=== PATIENT | male | born 1960 | race Caucasian/White ===

== ENCOUNTER 2018-01-18 10:23 | Emergency (ER) | payer OTHER ==
[~2018-01-18] VITALS: Ht 172.7 cm; Wt 145.1 kg
--- NOTE | 2018-01-18 11:19 | Diagnostic Imaging Report ---
INDICATION: Lower leg pain after injury. COMPARISON: Left ankle radiographs performed concurrently. FINDINGS AND IMPRESSION: 1. Seen only on the lateral radiograph, there is a area of radiodensity adjacent to the posterior aspect of the fibula which likely represents a chronic periosteal reaction. This would be an unusual site for fracture since the patient already has a distal fibular fracture. 2. Otherwise, no acute fracture of the proximal tibia or fibula. 3. Please see ankle radiograph report for details of the distal fibular and posterior malleolus fractures. Dictated by: Dictated on workstation # [id number]
--- NOTE | 2018-01-18 11:23 | Diagnostic Imaging Report ---
Indication: Injury to left ankle. AP, oblique, and lateral views of the left ankle are obtained at 1120 hrs. a.m. There is a comminuted acute fracture of the distal fibula with oblique orientation, there is a avulsion fracture of the posterior-most of the distal tibia as well as of the tip of the medialmost of the distal tibia. There is lateral subluxation of the talus relative to the tibia. There is plantar and posterior calcaneal spurring. Impression: Acute fractures of distal tibia and fibula as described above with lateral subluxation of the talus relative to the tibia. Dictated by: Dictated on workstation # [id number]
[2018-01-18] MEDS: fentaNYL INJECTION 100 MCG/2 ML AMP IVP ONE (11:34)
--- NOTE | 2018-01-18 12:24 | ED Fall/Injury ---
General Chief Complaint: Lower Extremity Stated Complaint: ROLLED ANKLE LT Nursing Triage Note: pt presents to ed with complaints of l ankle pain and swelling after twisting it this am while stepping out of his truck. Source: patient Exam Limitations: no limitations History of Present Illness Date Seen by Provider: Jan 18, 2018 Time Seen by Provider: 10:38 Initial Comments This 58-year-old gentleman presents to the emergency room with left ankle injury. Patient stopped at a filling station to get a drink and slipped on wet concrete in rainy conditions. He rolled his left ankle and fell. He has not been able to tolerate weightbearing or walking since then. He denies any other injury. His blood pressure is notably high upon arrival. Patient is traveling for work today. Allergies and Home Medications Allergies Coded Allergies: No Known Drug Allergies (Unverified , 01/18/18) Home Medications Hydrocodone/Acetaminophen 1 Each Tablet, 1-2 EACH PO Q4H Prescribed by: GISELA GALINDO on 01/18/18 1234 Patient Home Medication List Home Medication List Reviewed: Yes Review of Systems Review of Systems Constitutional: no symptoms reported Eyes: No Symptoms Reported Ears, Nose, Mouth, Throat: no symptoms reported Respiratory: no symptoms reported Cardiovascular: see HPI Gastrointestinal: no symptoms reported Genitourinary: no symptoms reported Musculoskeletal: no symptoms reported Skin: no symptoms reported Psychiatric/Neurological: No Symptoms Reported Past Pedhbws-Yzbbkn-Mfzllu Hx Past Med/Social Hx: Reviewed Nursing Past Med/Soc Hx Patient Social History Alcohol Use: Occasionally Uses Recreational Drug Use: No Smoking Status: Never a Smoker Type Used: Smokeless Tobacco Recent Foreign Travel: No Contact w/Someone Who Travel: No Recent Infectious Disease Expo: No Recent Hopitalizations: No Physical Abuse: No Sexual Abuse: No Mistreated: No Fear: No Past Medical History Surgeries: Yes (hernia repair) Respiratory: No Cardiac: Yes High Cholesterol, Hypertension Neurological: No Genitourinary: No Gastrointestinal: No Musculoskeletal: No Endocrine: No HEENT: No Cancer: No Psychosocial: No Nursing Suicide Risk Score: 0 Blood Disorders: No Physical Exam Vital Signs Vital Signs - First Documented 01/18/18 10:31 Temp 98.2 Pulse 93 Resp 18 B/P (MAP) 228/142 (170) Pulse Ox 96 Capillary Refill : Less Than 3 Seconds Height, Weight, BMI Height: 5'8.00" Weight: 320lbs. oz. 145.458265mq; BMI Method:Stated General Appearance: WD/WN, no apparent distress, obese HEENT: PERRL/EOMI, normal ENT inspection Neck: normal inspection Cardiovascular: regular rate, rhythm, no edema, no murmur Respiratory: lungs clear, normal breath sounds, no respiratory distress, no accessory muscle use Gastrointestinal: non tender, soft Extremities: other (Left hip, thigh, and knee are normal to inspection. Upper left lateral calf region is tender to palpation. There is tenderness and swelling about the left ankle. There is no gross disfigurement. Range of motion in the foot and ankle is decreased by pain. Pedal pulses palpable. Capillary refill is normal. Sensation and movement of the toes intact.) Procedures/Interventions Splinting and Joint Reduction : Pre-Proc Neuro Vasc Exam: normal Post-Proc Neuro Vasc Exam: normal Ordered: Crutches (Prescription) Hand-Made Type: orthoglass Splint Application: Short Leg (3 sided short leg splint was fashioned by this provider) Progress/Results/Core Measures Results/Orders My Orders Orders - GISELA ESPOSITO MD Tibia/Fibula, Left, 2 Views (01/18/18 10:44) Ankle, Left, 3 Views (01/18/18 10:44) Saline Lock/Iv-Start (01/18/18 11:25) Fentanyl Injection (Sublimaze Injection (01/18/18 11:30) Oxycodone/Apap 5/325mg Tablet (Percocet (01/18/18 12:30) Crutches (01/18/18 12:24) Medications Given in ED Vital Signs/I&O 01/18/18 01/18/18 10:31 13:05 Temp 98.2 Pulse 93 64 Resp 18 18 B/P (MAP) 228/142 (170) 176/93 Pulse Ox 96 98 Blood Pressure Mean: 170 Progress Progress Note #1: Time: 12:22 Progress Note X-ray imaging revealed fractures of the distal tibia and fibula. There was a questionable fracture of the proximal fibula. Dr. Granados suspects fracture based on his review of the images. However, the radiologist believes this is prominent periosteal calcification. My concern is the patient does have pain and tenderness in the lateral proximal calf, and I therefore believe it is fractured.. 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 Patient is from the [facility] and will return home to have further orthopedic care provided. Occupational health paperwork has been completed. The left lower extremity was placed in a 3 sided splint. Progress Note #2: Progress Note Patient's blood pressure trended down throughout his ER stay after management of pain. Patient was given fentanyl and Percocet for pain management. Three- way splint was applied and patient stated it was comfortable with range of motion of the knee. Crutches or not available in the unit at this time. A prescription was provided. Patient's employer presented to the ER and patient was dismissed into his care. Diagnostic Imaging Diagonstic Imaging: Xray Plain Films/CT/US/NM/MRI: ankle Comments Left ankle x-ray viewed by me and report reviewed. Discussed with the radiologist and Dr. Granados. See report below: NAME: JOSEE GUERRA [facility] REC#: [id number] PT STATUS: REG ER : 1960 PHYSICIAN: GISELA ESPOSITO MD ADMIT DATE: 01/18/18/ER Signed Date of Exam: 01/18/18 ANKLE, LEFT, 3 VIEWS Indication: Injury to left ankle. AP, oblique, and lateral views of the left ankle are obtained at 1120 hrs. a.m. There is a comminuted acute fracture of the distal fibula with oblique orientation, there is a avulsion fracture of the posterior-most of the distal tibia as well as of the tip of the medialmost of the distal tibia. There is lateral subluxation of the talus relative to the tibia. There is plantar and posterior calcaneal spurring. Impression: Acute fractures of distal tibia and fibula as described above with lateral subluxation of the talus relative to the tibia. Dictated by: Dictated on workstation # [id number] Dict: 01/18/18 1108 Trans: 01/18/18 1151 Interpreted by: DANNA PATEL MD Electronically signed by: DANNA PATEL MD 01/18/18 1151 Reviewed: Reviewed by Me, Discussed w/Radiologist Diagonstic Imaging: Xray Plain Films/CT/US/NM/MRI: leg Comments Left tib-fib x-ray viewed by me and report reviewed. Discussed with Dr. Granados and the radiologist. See report below: NAME: JOSEE GUERRA [facility] REC#: [id number] PT STATUS: DEP ER : 1960 PHYSICIAN: GISELA ESPOSITO MD ADMIT DATE: 01/18/18/ER Signed Date of Exam: 01/18/18 TIBIA/FIBULA, LEFT, 2 VIEWS INDICATION: Lower leg pain after injury. COMPARISON: Left ankle radiographs performed concurrently. FINDINGS AND IMPRESSION: 1. Seen only on the lateral radiograph, there is a area of radiodensity adjacent to the posterior aspect of the fibula which likely represents a chronic periosteal reaction. This would be an unusual site for fracture since the patient already has a distal fibular fracture. 2. Otherwise, no acute fracture of the proximal tibia or fibula. 3. Please see ankle radiograph report for details of the distal fibular and posterior malleolus fractures. Dictated by: Dictated on workstation # [id number] Dict: 01/18/18 1113 Trans: 01/18/18 1405 Interpreted by: SHIVAM OLSON MD Electronically signed by: SHIVAM OLSON MD 01/18/18 1405 Reviewed: Reviewed by Me, Discussed w/Radiologist Departure Impression Primary Impression: Trimalleolar fracture of ankle, closed Qualified Codes: S82.852A - Displaced trimalleolar fracture of left lower leg , initial encounter for closed fracture Additional Impressions: Fracture, fibula, proximal Qualified Codes: S82.832A - Other fracture of upper and lower end of left fibula, initial encounter for closed fracture Fall on same level from slipping Qualified Codes: W01.0XXA - Fall on same level from slipping, tripping and stumbling without subsequent striking against object, initial encounter Hypertensive urgency Disposition: 01 HOME, SELF-CARE Condition: Improved Departure-Patient Inst. Decision time for Depature: 12:00 Referrals: NO,LOCAL PHYSICIAN (PCP/Family) Primary Care Physician Patient Instructions: Ankle Fracture, How to Use Crutches, SPLINT CARE Add. Discharge Instructions: Follow-up with occupational health and an orthopedic provider as soon as possible. You will likely need surgical repair of this injury. Do not weight- bear on your left leg. Ambulate with crutches. Elevate your leg is much as possible. You may ice in 20 minute intervals to help with pain and swelling. Use your pain medication as prescribed. Return to the emergency room if you have any further problems or concerns. All discharge instructions reviewed with patient and/or family. Voiced understanding. Scripts Hydrocodone/Acetaminophen (Hydrocodone-Acetamin 5-325 mg) 1 Each Tablet 1-2 EACH PO Q4H, #60 TAB Prov: GISELA ESPOSITO MD 01/18/18 GISELA ESPOSITO MD Jan 18, 2018 12:24
[2018-01-18] MEDS ORDERED: HYDR-3812 PO (12:34)
[2018-01-18] MEDS: oxyCODONE/APAP 5/325MG (PERCOCET 5) TABLET PO ONE (12:44)
[2018-01-18 13:05] VITALS: BP 176/93
== END 2018-01-18 13:02 | disposition home or self-care (01) ==
LOC: ER 10:26
DX: S82.852A Displaced trimalleolar fracture of left lower leg, initial encounter for closed fracture (principal); S82.832A Other fracture of upper and lower end of left fibula, initial encounter for closed fracture; I16.0 Hypertensive urgency; M25.472 Effusion, left ankle; E78.00 Pure hypercholesterolemia, unspecified; I10 Essential (primary) hypertension; Z87.19 Personal history of other diseases of the digestive system; V57.4XXA Person boarding or alighting a pick-up truck or van injured in collision with fixed or stationary object, initial encounter; W01.0XXA Fall on same level from slipping, tripping and stumbling without subsequent striking against object, initial encounter; X50.1XXA Overexertion from prolonged static or awkward postures, initial encounter
CPT/HCPCS: 29515; 73590; 73610; 96374